=== PATIENT | female | born 1965 | race American Indian/Alaskan Native ===

== ENCOUNTER 2017-05-12 10:41 | Day surgery (SDC) | payer OTHER ==
[~2017-05-12 10:41] MED LIST: NACL 0.9% IR ONE
[2017-05-12] MEDS ORDERED: XYLOCAINE MPF 2% ONE ×2 (11:31→14:12)
[2017-05-12] MEDS ORDERED: DIPRIVAN 10 MG/ML IV ONE ×3 (11:32→17:39)
[2017-05-12] MEDS ORDERED: SUBLIMAZE ONE ×2 (11:32→14:12)
--- NOTE | 2017-05-12 12:16 | Anesthesia Consultation ---
Anesthesia Consult and Med Hx Date of service: 05/12/17 - Airway Anesthetic Teeth Evaluation: Poor ROM Head & Neck: Adequate Mental/Hyoid Distance: Adequate Mallampati Class: Class II Intubation Access Assessment: Probably Good - Pulmonary Exam CTA: Yes - Cardiac Exam Cardiac Exam: RRR - Pre-Operative Health Status ASA Pre-Surgery Classification: ASA3 - Cardiovascular System Hx Hypertension: Yes (dx 3 years ag) - Other Systems Hx Cancer: No Hx Obesity: Yes
--- NOTE | 2017-05-12 12:16 | Anesthesia Day of Surgery ---
Anesthesia Day of Surgery - Day of Surgery Patient Examined: Yes Patient H&P Reviewed: Yes Patient is NPO: Yes
[2017-05-12 12:53] LABS: Hematocrit 41.6 % (30.3-42.9); Hemoglobin 13.7 gm/dl (10.1-14.3); Mean Corpuscular HGB Conc 33 % (30-34); Mean Corpuscular Volume 77 fl (79-97); Platelet Count 321 K/mm3 (140-440); Red Blood Count 5.41 M/mm3 (3.65-5.03); Red Cell Distribution Width 15.9 % (13.2-15.2); White Blood Count 6.2 K/mm3 (4.5-11.0)
[2017-05-12 13:00] LABS: Mean Corpuscular Hemoglobin 25 pg (28-32)
[2017-05-12] MEDS ORDERED: VERSED IV NR (13:00)
[2017-05-12] MEDS ORDERED: PEPCID PO NR (13:00)
[2017-05-12] MEDS ORDERED: LACTATED RINGERS 1,000 ML IV SCH (13:00)
[2017-05-12] MEDS ORDERED: NEO SYNEPHRINE/NS Syringe(OR USE) IV ONE (14:00)
[2017-05-12] MEDS ORDERED: BREVIBLOC IV ONE (14:00)
[2017-05-12] MEDS ORDERED: DECADRON ONE (14:12)
[2017-05-12] MEDS ORDERED: DILAUDID IV PRN (14:18)
[2017-05-12] MEDS ORDERED: ZOFRAN IV PRN ×4 (14:30→21:00)
[2017-05-12] MEDS ORDERED: NORCO 5/325 PO PRN (14:30)
--- NOTE | 2017-05-12 16:23 | Discharge Summary ---
Short Stay Discharge Plan Activity: no restrictions Weight Bearing Status: Full Weight Bearing Diet: regular Wound: remove dressing (72hrs) Follow up with: ISIDORO BURGER MD [Primary Care Provider] - 6 Weeks WORK,EMMANUEL Gomes JR, MD [Staff Physician] - 7 Days
--- NOTE | 2017-05-12 16:24 | Short Stay Summary ---
Short Stay Documentation Date of service: 05/12/17 - Allergies and Medications Current Medications: Allergies No Known Allergies Allergy (Verified 05/12/17 11:29) Home Medications Medication Instructions Recorded Confirmed Last Taken Type Hydrochlorothiazide [Hctz] 25 mg PO QDAY 05/08/17 05/12/17 05/12/17 09:00 History Pravastatin Sodium [Pravastatin] 40 mg PO QDAY 05/08/17 05/12/17 09:00 History amLODIPine [Norvasc] 5 mg PO BID 05/08/17 05/12/17 05/11/17 09:00 History Active Medications Famotidine (Pepcid) 20 mg PO PREOP NR Stop: 05/12/17 23:59 Last Admin: 05/12/17 12:28 Dose: 20 mg Hydromorphone HCl (Dilaudid) 0.5 mg IV Q10MIN PRN PRN Reason: Pain , Severe (7-10) Stop: 05/12/17 18:00 Lactated Ringer's (Lactated Ringers) 1,000 mls @ 100 mls/hr IV DIRECT CEFERINO Last Admin: 05/12/17 12:28 Dose: 100 mls/hr Midazolam HCl (Versed) 2 mg IV PREOP NR Stop: 05/12/17 23:59 Last Admin: 05/12/17 14:35 Dose: 2 mg - Brief post op/procedure progress note Date of procedure: 05/12/17 Pre-op diagnosis: Macromastia Post-op diagnosis: same Procedure: Bilateral Breast Reduction with NAC Amputation Anesthesia: GETA Surgeon: EMMANUEL KEYS JR Estimated blood loss: 50-100ml Specimen disposition: to lab Condition: stable - Disposition Condition at discharge: Good Disposition: DC-01 TO HOME OR SELFCARE Short Stay Discharge Plan Follow up with: EMMANUEL KEYS JR, MD [Staff Physician] - 7 Days ISIDORO BURGER MD [Primary Care Provider] - 6 Weeks
[2017-05-12] MEDS ORDERED: NACL 0.9% IR ONE (16:57)
[2017-05-12] MEDS ORDERED: ANCEF/STERILE WATER 2 GM/20 ML IV NR (17:00)
[2017-05-12] MEDS ORDERED: ZOFRAN ONE (17:27)
[2017-05-12] MEDS ORDERED: APRESOLINE ONE (17:41)
[2017-05-12] MEDS ORDERED: DILAUDID ONE (17:43)
[2017-05-12] MEDS ORDERED: ROBINUL ONE (19:27)
--- NOTE | 2017-05-12 20:14 | Post Anesthesia Evaluation ---
- Post Anesthesia Evaluation Patient Participated: Yes Airway Patent: Yes Stable Respiratory Function: Yes Temp > 96.8F: Yes Pain Manageable: Yes Adequeate Hydration: Yes Anesthesia Complications: No
[2017-05-12] MEDS: DILAUDID IV PRN ×2 (20:25→20:37)
--- NOTE | 2017-05-12 20:41 | Operative Report ---
PREOPERATIVE DIAGNOSIS: Macromastia. POSTOPERATIVE DIAGNOSIS: Macromastia. PROCEDURE: Bilateral reduction mammoplasty with bilateral NAC amputation. SURGEON: William Phelan MD HOT CELL TECHNICIAN: Jozef Hurtado CSA FINDINGS: 1680 gm removed from the right breast, 840 gm removed from the left breast. DESCRIPTION OF PROCEDURE: The patient was brought into the operating room and placed on the table in supine position. Following administration of general anesthesia, bilateral breasts were prepped with a Betadine solution and draped in usual sterile manner. A #10 blade scalpel was used to make a circumareolar skin incision followed by de-epithelization of an inferior dermal pedicle. Modified Aragon pattern skin markings were incised with scalpel, deepened through subcutaneous fat and breast tissue using the electrocautery. Skin flaps were raised in standard manner as was fashioning of an inferior central mound pedicle. Breast tissue was resected inclusive of bilateral nipple areolar complexes and sent to pathology as specimen. Hemostasis was controlled using the electrocautery. Skin closure was performed over a 10-mm Bravo drain using interrupted and running subcuticular 2-0 Monocryl sutures. Mastisol, Steri-Strips, and sterile dressings were applied. The patient tolerated the procedure well and returned to recovery room in stable condition. JOB# [id number]
[2017-05-12] MEDS ORDERED: TORADOL IV PRN ×2 (20:47→21:00)
[2017-05-12 21:59] VITALS: BP 122/70
== END 2017-05-12 10:42 | disposition home or self-care (01) ==
LOC: OR 10:41
PROVIDERS: ATTEND Plastic Surgery
DX: N60.12 Diffuse cystic mastopathy of left breast (principal); N60.11 Diffuse cystic mastopathy of right breast; K21.9 Gastro-esophageal reflux disease without esophagitis; I10 Essential (primary) hypertension; E78.00 Pure hypercholesterolemia, unspecified; E66.9 Obesity, unspecified; Z68.41 Body mass index [BMI] 40.0-44.9, adult; Z98.890 Other specified postprocedural states; Z79.899 Other long term (current) drug therapy
CPT/HCPCS: 19318; 36415; 84132; 85027; 88304; 88305; J0360; J0690; J1100; J1170; J1885; J2250; J2370; J2405; J2704; J3010; J7120; 88307